=== PATIENT | male | born 2000 | race Hispanic/Latino ===

== ENCOUNTER 2021-12-26 20:49 | Emergency (ER) | payer SELFPAY ==
[~2021-12-26] VITALS: Ht 170.2 cm; Wt 90.7 kg
[2021-12-26] MEDS ORDERED: CEPHALEXIN500 MG PO (21:31)
== END 2021-12-26 21:34 | disposition home or self-care (01) ==
LOC: ER 21:00
DX: N61.0 Mastitis without abscess (principal)
CPT/HCPCS: 99282